=== PATIENT | male | born 1990 | race Caucasian/White ===

== ENCOUNTER 2018-03-15 18:21 | Emergency (ER) | payer OTHER ==
[~2018-03-15] VITALS: Ht 172.7 cm; Wt 124.7 kg
[2018-03-15] MEDS ORDERED: KETOROLAC TROMETH 30 MG/ML 1ML VIAL IV ONE ×2 (19:45→23:30)
[2018-03-15] MEDS ORDERED: fentaNYL CITRATE 100 MCG/2 ML VL IV ONE ×2 (19:45→23:30)
[2018-03-16 09:30] LABS: Basophils # (auto) 0 uL; Basophils % (auto) 0.5 % (0.0-2.0); Eosinophils # (auto) 0 uL; Eosinophils % (auto) 0.5 % (0.0-7.0); Hematocrit 40.8 % (41.0-53.0); Lymphocytes # (auto) 1.9 uL; Lymphocytes % (auto) 20.8 % (10.0-50.0); Mean Corpuscular Hemoglobin 31.3 pg (28.0-32.0); Mean Corpuscular Hgb Conc. 34.5 g/dL (32.0-36.0); Mean Corpuscular Volume 90.9 fL (80.0-100.0); Monocytes # (auto) 0.9 uL; Monocytes % (auto) 10.3 % (0.0-12.0); Neutrophils # (auto) 6.1 uL; Neutrophils % (auto) 67.9 % (37.0-80.0); Platelet Count (auto) 210 10^3/uL (140-450); Red Blood Cells 4.49 10^6/uL (4.5-5.90); White Blood Cell 8.9 10^3/uL (4.4-10.8)
[2018-03-16 09:46] LABS: Albumin 3.5 g/dL (3.4-5.0); BUN/Creatinine Ratio 16.8; Calcium 8.6 mg/dL (8.5-10.1); Potassium 3.9 mmol/L (3.5-5.1)
[2018-03-16 09:48] LABS: Bilirubin, Total 0.8 mg/dL (0.2-1.0); Total Protein 6.7 g/dL (6.4-8.2)
[2018-03-16 10:26] LABS: Urine WBC None Seen /hpf (0 - 3)
[2018-03-16 11:01] LABS: Urine Bacteria NONE SEEN /hpf (None Seen); Urine Blood Negative /uL (Negative); Urine Mucus FEW (None Seen); Urine Specific Gravity 1.033 (1.001-1.035)
[2018-03-16] MEDS ORDERED: MORPHINE SULFATE 8mg/ml INJ SDV IV ONE (11:45)
[2018-03-16] MEDS ORDERED: PROMETHAZINE HCL 25 MG/ML 1ML IV ONE (11:45)
[2018-03-16] MEDS ORDERED: BUPRTAB3 PO (11:45)
[2018-03-16] MEDS ORDERED: LAM25T PO (11:47)
[2018-03-16] MEDS ORDERED: CITA10TA59 PO (11:47)
[2018-03-16 12:19] VITALS: BP 152/96
== END 2018-03-16 12:43 | disposition short-term general hospital (02) ==
LOC: ER 18:31
DX: S22.42XA Multiple fractures of ribs, left side, initial encounter for closed fracture (principal); S42.109A Fracture of unspecified part of scapula, unspecified shoulder, initial encounter for closed fracture; R42 Dizziness and giddiness; J93.9 Pneumothorax, unspecified; Z88.8 Allergy status to other drugs, medicaments and biological substances; V29.88XA Motorcycle rider (driver) (passenger) injured in other specified transport accidents, initial encounter; Y93.55 Activity, bike riding; Y92.89 Other specified places as the place of occurrence of the external cause; Y99.8 Other external cause status
CPT/HCPCS: 36415; 70450; 71046; 71250; 72125; 73200; 80053; 81001; 85025; 93005; 96374; 96375; 96376; 99285; J1885; J2270; J2550; J3010